=== PATIENT | female | born 1990 | race Caucasian/White ===

== ENCOUNTER 2017-10-21 12:54 | Emergency (ER) | payer BC ==
[2017-10-21 13:04] VITALS: BMI 28.7
[2017-10-21 14:22] LABS: URINE APPEARANCE CLEAR; URINE BILIRUBIN NEGATIVE (<2.0 mg/dL); URINE COLOR STRAW; URINE GLUCOSE (UA) NEGATIVE (NEGATIVE); URINE KETONE NEGATIVE (NEGATIVE); URINE LEUK ESTERASE NEGATIVE (NEGATIVE); URINE NITRITE NEGATIVE (NEGATIVE); URINE PROTEIN NEGATIVE (NEGATIVE); URINE UROBILINOGEN NEGATIVE mg/dL (0.2-1.0)
--- NOTE | 2017-10-21 15:05 | PDOC ---
History of Present Illness - General Chief Complaint: Pain Stated Complaint: ABDOMINAL PAIN/ Time Seen by Provider: 10/21/17 13:55 History Source: Patient Exam Limitations: No Limitations - History of Present Illness Travel History: No Initial Comments: 10/21/17 15:00 27-year-old female here for evaluation of . Patient states went to her [facility] at [facility] and had a bedside Doppler done to check the heart rate but no heart rate was detected. Patient was referred here to have an ultrasound. Patient denies vaginal discharge, urinary complaints and states since onset of has had intermittent mid suprapubic cramping which she denies presently. Patient states is exactly 15 weeks tomorrow. Patient has no other complaints at this time including back pain, nausea weakness. Aggravating Factors: improves with: None Alleviating Factors: improves with: None Past History - Travel Traveled outside of the country in the last 30 days: No - Past Medical History Allergies/Adverse Reactions: Allergies Allergy/AdvReac Type Severity Reaction Status Date / Time No Known Allergies Allergy Verified 10/21/17 13:04 COPD: No - Suicide/Smoking/Psychosocial Hx Smoking History: Never smoked Have you smoked in the past 12 months: No Information on smoking cessation initiated: No Hx Alcohol Use: No Drug/Substance Use Hx: No Substance Use Type: None Patient Lives Alone: No Lives with/in: spouse/SO Review of Systems - Review of Systems Able to Perform ROS?: No Constitutional: No: Symptoms Reported Respiratory: No: Symptoms reported Cardiac (ROS): No: Symptoms Reported ABD/GI: No: Symptoms Reported : No: Symptoms Reported Musculoskeletal: No: Symptoms Reported Integumentary: No: Symptoms Reported Neurological: No: Symptoms reported *Physical Exam - Vital Signs Last Vital Signs Temp Pulse Resp BP Pulse Ox 97.6 F 60 18 97/53 100 10/21/17 13:01 10/21/17 13:01 10/21/17 13:01 10/21/17 13:01 10/21/17 13:01 - Physical Exam General Appearance: Yes: Nourished, Appropriately Dressed. No: Apparent Distress Neck: positive: Normal Thyroid, Supple Respiratory/Chest: positive: Lungs Clear, Normal Breath Sounds. negative: Respiratory Distress, Accessory Muscle Use Cardiovascular: positive: Regular Rhythm, Regular Rate. negative: Murmur Gastrointestinal/Abdominal: positive: Normal Bowel Sounds, Soft, Distended ( lower abdomen. ). negative: Tenderness Musculoskeletal: negative: Normal Inspection Extremity: positive: Normal Capillary Refill. negative: Pedal Edema Integumentary: positive: Normal Color, Warm, Moist Neurologic: positive: Motor Strength 5/5 (ambulatory) ED Treatment Course - ADDITIONAL ORDERS Additional order review: Laboratory Results 10/21/17 14:00 Urine Color Straw Urine Appearance Clear Urine pH 6.0 Ur Specific [place] 1.008 Urine Protein Negative Urine Glucose (UA) Negative Urine Ketones Negative Urine Blood Negative Urine Nitrite Negative Urine Bilirubin Negative Urine Urobilinogen Negative Ur Leukocyte Esterase Negative - RADIOLOGY Radiology Studies Ordered: Category Date Time Status US(SINGLE) [US] Stat Ultrasound 10/21/17 13:58 Ordered Medical Decision Making - Medical Decision Making 10/21/17 15:00 Patient approximately 15 weeks based on LMP presents to the ED with no complaints except for evaluation of . Patient has had no ultrasounds done for this and while at her [employer] [facility] today they did a bedside Doppler but detected no heart rate. The office was not equipped with an ultrasound and so referred her to the ER. Patient on exam had no abdominal tenderness CVA tenderness or abnormal findings. Patient ordered for urine urine culture along with ultrasound. 10/21/17 15:02 Laboratory Tests 10/21/17 14:00 Urine Ketones Negative Urine Blood Negative Urine Nitrite Negative Ur Leukocyte Esterase Negative 10/21/17 15:03 Ultrasound shows single intrauterine gestation at 15 weeks 2 days with heart rate of 1 52 bpm . movement identified. There is no adnexal masses or free fluid in the pelvis. *DC/Admit/Observation/Transfer Diagnosis at time of Disposition: Normal intrauterine on ultrasound Qualifiers: Trimester: second trimester Qualified Code(s): Z34.92 - Encounter for supervision of normal , unspecified, second trimester - Discharge Dispostion Disposition: HOME Condition at time of disposition: Good - Referrals - Patient Instructions Additional Instructions: Your ultrasound shows you are 15 weeks 2 days with good movement and heart rate. Please bring copy of ultrasound with you to your next [employer] appointment. - Post Discharge Activity
[2017-10-21 18:31] VITALS: BP 101/49; PULSE 63; TEMP 98
== END 2017-10-21 15:27 | disposition home or self-care (01) ==
LOC: JER 12:54
DX: O26.892 Other specified pregnancy related conditions, second trimester (principal); O36.80X0 Pregnancy with inconclusive fetal viability, not applicable or unspecified; Z3A.15 15 weeks gestation of pregnancy
CPT/HCPCS: 76801-TC; 81003; 87086; 99282-25